=== PATIENT | female | born 1960 | race Caucasian/White ===

== ENCOUNTER 2018-07-31 11:25 | Day surgery (SDC) | payer OTHER | END 2018-07-31 14:48 | disposition home or self-care (01) | LOC: GIL 11:25 | DX: K29.50 Unspecified chronic gastritis without bleeding (principal); B96.81 Helicobacter pylori [H. pylori] as the cause of diseases classified elsewhere; K21.9 Gastro-esophageal reflux disease without esophagitis | CPT/HCPCS: 43239; 88305; 88312 ==

== ENCOUNTER 2019-04-06 18:53 | Emergency (ER) | payer OTHER | END 2019-04-06 20:05 | disposition home or self-care (01) | LOC: FTE 18:53 | DX: J20.9 Acute bronchitis, unspecified (principal) | CPT/HCPCS: 99283 ==